=== PATIENT | female | born 1955 | race African-American/Black ===

== ENCOUNTER 2017-06-14 11:15 | Emergency (ER) | payer OTHER ==
[~2017-06-14] VITALS: Ht 162.6 cm; Wt 100.7 kg
[~2017-06-14 11:15] MED LIST: AMLODIPINE BESY10 M1 PO; CLONAZEPAM1 M2 PO; HYDROCODON-ACE1 EAC2 PO; LOSARTAN POTASS25 M1 PO; MELOXICAM15 M1 PO; ZETIA10 M1 PO
[2017-06-14 11:23] VITALS: BP 109/72
[2017-06-14] MEDS ORDERED: AMOXICILLIN500 M2 PO (12:46)
--- NOTE | 2017-06-14 13:26 | ED SKIN/ALLERGY COMPLAINT ---
History of Present Illness General Chief Complaint: Skin Rash/ Abcess Stated Complaint: HIVES ALL OVER BODY Source: patient Exam Limitations: no limitations Vital Signs & Intake/Output Vital Signs & Intake/Output ED Intake and Output 06/15 0000 06/14 1200 Intake Total Output Total Balance Patient 222 lb Weight Weight Reported by Patient Measurement Method Allergies Coded Allergies: No Known Allergies (03/16/17) Reconcile Medications Amlodipine Besylate 10 MG TABLET 1 TAB PO DAILY HEART (Reported) Amoxicillin 500 MG CAPSULE 1 CAP PO TID ANTIBIOTIC, INFECTION (Reported) Clonazepam 1 MG TABLET 1 TAB PO DAILY ANXIETY (Reported) Ezetimibe (Zetia) 10 MG TABLET 1 TAB PO DAILY CHOLESTEROL (Reported) Losartan Potassium 25 MG TABLET 1 TAB PO DAILY HEART (Reported) Meloxicam 15 MG TABLET 1 TAB PO DAILY PAIN (Reported) Methylprednisolone. (Medrol) 4 MG TAB.DS.PK 1 DP PO AD rash 6 on day 1 then reduce by one tablet daily until gone Triage Note: C/O HIVES ON ARMS AND LEGS STARTED ON WEDNESDAY. PT UNSURE IF NEW DETERGENT B/C SHE DROPPED HER LAUNDRY OFF TO BE DONE. TOOK BENEDRYL WITHOUT RELIEF Triage Nurses Notes Reviewed? yes Onset: Gradual Duration: day(s): Timing: recent history Severity: moderate Location: generalized HPI: 61yo female presents to ED complaining of generalized rash to trunk and extremities beginning 3 days ago. Patient states that rash is itchy. Patient has taken Benadryl tablets without relief of her rash. Patient has no history of a similar rash in the past. Patient is unsure of change in laundry detergent as she has her laundry sent out for cleaning. She has had no new medications or foods, no changes in soaps at home. Patient denies fevers, chills, abdominal pain, vomiting. (Hilary Hardy) Past History Travel History Traveled to [place] past 21 day No Medical History Any Pertinent Medical History? see below for history Neurological: NONE EENT: NONE Cardiovascular: hypertension Respiratory: NONE Gastrointestinal: NONE Hepatic: NONE Renal: NONE Musculoskeletal: NONE Psychiatric: anxiety Endocrine: NONE Blood Disorders: NONE Cancer(s): NONE SURVEILLANCE MANAGER/Reproductive: NONE Surgical History Surgical History: non-contributory Psychosocial History What is your primary language Zimbabwean Tobacco Use: Never used ETOH Use: occasional use Illicit Drug Use: denies illicit drug use Family History Hx Contributory? No (Hilary Hardy) Review of Systems Review of Systems Constitutional: Reports: no symptoms. EENTM: Reports: no symptoms. Respiratory: Reports: no symptoms. Cardiovascular: Reports: no symptoms. GI: Reports: no symptoms. Genitourinary: Reports: no symptoms. Musculoskeletal: Reports: no symptoms. Skin: Reports: see HPI. Neurological/Psychological: Reports: no symptoms. Hematologic/Endocrine: Reports: no symptoms. Immunologic/Allergic: Reports: no symptoms. All Other Systems: Reviewed and Negative (Hilary Hardy) Physical Exam Physical Exam General Appearance: well developed/nourished, no apparent distress, alert, awake Head: atraumatic, normal appearance Eyes: Bilateral: normal appearance. Ears, Nose, Throat: hearing grossly normal Neck: normal inspection, supple, full range of motion Respiratory: no respiratory distress Back: normal inspection, normal range of motion Extremities: normal inspection, normal range of motion Neurologic/Psych: awake, alert, oriented x 3 Skin: slightly raised maculopapular rash with mild erythema to extremities and trunk, nontender, no active drainage (Hilary Hardy) Progress Differential Diagnosis: abscess/cellulitis, allergic reaction, contact dermatitis, drug reaction, erythema multiforme, syphilis/gonococcemia, urticaria Plan of Care: Patient's rash appears consistent with a contact dermatitis. Patient instructed to begin steroids given systemic rash as well as continue Benadryl around the clock. She was given recommendations for [id number] lotions to help relieve itching. Patient is in no acute distress, nontoxic appearing, vital signs are stable. Patient agrees with the plan of care. The patient was discussed with Dr. Barrera who agrees with this plan. (Hilary Hardy) Departure Departure Disposition: HOME OR SELF CARE Condition: Stable Clinical Impression Primary Impression: Rash and nonspecific skin eruption Referrals: Unknown (PCP/Family) Additional Instructions: Continue Benadryl 25 mg every 6 hours for rash. Also apply eucerin anti itch cream. Begin steroids, take full 5 days of steroids. Return with any worsening symptoms or concerns. Please note that there might be incidental findings in your evaluation that are unrelated to the current emergency department visit. Please notify your primary care doctor about this emergency department visit in order to obtain and review all of the testing performed so that these incidental findings can be monitored as needed. If you had an x-ray performed, please understand that some fractures may not be seen on the initial set of x-rays. If your symptoms persist you might need a repeat set of x-rays to check for such a fracture. If you had a laceration evaluated, please understand that foreign bodies such as glass or wood may not be visible to the naked eye or on plain x-rays. If the wound becomes red, swollen, increasingly more painful or if there is any drainage from the wound, please have it reevaluated by a physician for the possibility of a retained foreign body. If you're unable to follow up as outlined in the discharge instructions please return to the emergency department. Thank you for choosing the [facility] Emergency Department for your care. It was a pleasure to serve you today. Departure Forms: Customer Survey General Discharge Information Prescriptions: Current Visit Scripts Methylprednisolone. (Medrol) 1 DP PO AD #1 DP 6 on day 1 then reduce by one tablet daily until gone (Elinor RAMOS,Hilary Seay) PA/ULTRASONIC WELDING MACHINE OPERATOR Co-Sign Statement Statement: ED Attending supervision documentation- x I saw and evaluated the patient. I have also reviewed all the pertinent lab results and diagnostic results. I agree with the findings and the plan of care as documented in the PA's/ULTRASONIC WELDING MACHINE OPERATOR's documentation. [] I have reviewed the ED Record and agree with the PA's/ULTRASONIC WELDING MACHINE OPERATOR's documentation. [] Additions or exceptions (if any) to the PAs/ULTRASONIC WELDING MACHINE OPERATOR's note and plan are summarized below: [] (Bruce AGUILA,Efrem)
[2017-06-14] MEDS ORDERED: MEDROL4 M2 PO (13:31)
== END 2017-06-14 13:41 ==
LOC: ERH 11:15
DX: R21 Rash and other nonspecific skin eruption (principal)